=== PATIENT | female | born 1975 | race Two or more races ===

== ENCOUNTER 2023-07-25 04:40 | Day surgery (SDC) | payer BC ==
[2023-07-23 09:16] VITALS: BMI 31.4
[~2023-07-25 04:40] MED LIST: COCAINE HCL 4% TOPICAL SOLUTION 4 ML BOTTLE TP ONE
[2023-07-25] MEDS ORDERED: COCAINE HCL 4% TOPICAL SOLUTION 4 ML BOTTLE TP ONE ×2 (07:20→08:10)
[2023-07-25] MEDS ORDERED: MIDAZOLAM HCL 2 MG/2 ML SINGLE DOSE VIAL ONE (07:20)
[2023-07-25] MEDS ORDERED: FENTANYL CITRATE/PF 50 MCG/ML VIAL ONE (07:20)
[2023-07-25] MEDS ORDERED: PROPOFOL 40 ML ONE (07:21)
[2023-07-25] MEDS ORDERED: LIDOCAINE 1%/EPI 1:100000 (50 ML MULTI DOSE VIAL) NR ONE ×2 (07:58)
[2023-07-25] MEDS ORDERED: GLYCOPYRROLATE 0.2 MG/1 ML VIAL ONE ×3 (08:41)
[2023-07-25] MEDS ORDERED: ONDANSETRON 4 MG/2 ML VIAL ONE (08:41)
[2023-07-25] MEDS ORDERED: DEXAMETHASONE SOD PHOSPHATE 4 MG/1 ML VIAL ONE ×3 (08:41)
[2023-07-25] MEDS ORDERED: NEOSTIGMINE METHYLSULFATE 0.5 MG/1 ML - 10 ML MDV ONE (08:41)
[2023-07-25 10:33] VITALS: RESP 16
[2023-07-25 11:17] VITALS: PULSE 77; TEMP 97.1
[2023-07-25] MEDS ORDERED: LACTATED RINGERS SOLUTION 1,000 ML IV SCH (11:30)
[2023-07-25 12:44] VITALS: BP 149/85
== END 2023-07-25 12:45 | disposition home or self-care (01) ==
LOC: JASU-SURG 04:40
PROVIDERS: ATTEND Otolaryngology
PROC: 09TL8ZZ Resection of Nasal Turbinate, Via Natural or Artificial Opening Endoscopic (ICD-10-PCS; 2023-07-25)
PROC: 09BM8ZZ Excision of Nasal Septum, Via Natural or Artificial Opening Endoscopic (ICD-10-PCS; principal; 2023-07-25 07:30)
DX: J34.2 Deviated nasal septum (principal); J34.3 Hypertrophy of nasal turbinates
CPT/HCPCS: 81025; 88304-TC; 94760